=== PATIENT | female | born 1990 | race Caucasian/White ===

== ENCOUNTER → 2017-08-30 | Outpatient (CLI) | payer OTHER ==
[~2017-08-30] MED LIST: ACHD5005 PO; CETI10TA20 PO; DICY20TA10 PO; FLUT9.9S NS; HYDR1TAB3 PO; LACT1CAP62 PO; LISD40CA3 PO; METR500T; NORG1TAB14 PO; PHEN37.582
--- NOTE | 2017-08-30 08:45 | Diagnostic Imaging Report ---
PROCEDURE: US Gallbladder. TECHNIQUE: Multiple real-time grayscale images were obtained over the right upper quadrant in various projections. INDICATION: Right upper quadrant pain. COMPARISON: None. FINDINGS: The liver appears unremarkable. There are multiple stones in the gallbladder, one of which appears to be lodged within the gallbladder neck. There is no wall thickening or pericholecystic fluid. No sonographic Oliva sign. The common bile duct is not well demonstrated. No gross biliary dilatation is suspected. The pancreas is not well seen. The right kidney measures 9.2 cm in length and appears unremarkable. There is no ascites. IMPRESSION: 1. Cholelithiasis. 2. No additional significant abnormality is demonstrated. The pancreas and common bile duct, however, are not well visualized. Dictated by: Dictated on workstation # [id number]
== END ==
LOC: RAD 07:45
PROVIDERS: ATTEND Family Medicine
DX: K80.20 Calculus of gallbladder without cholecystitis without obstruction (principal)
CPT/HCPCS: 76705

== ENCOUNTER 2017-08-31 06:33 | Outpatient (CLI) | payer OTHER ==
[~2017-08-31] VITALS: Ht 162.6 cm; Wt 117.9 kg
[~2017-08-31 06:33] MED LIST changes: -ACHD5005 PO; -CETI10TA20 PO; -DICY20TA10 PO; -FLUT9.9S NS; -LACT1CAP62 PO; -LISD40CA3 PO; -NORG1TAB14 PO
[2017-08-31] MEDS ORDERED: FLUT9.9S NS (13:00)
[2017-08-31] MEDS ORDERED: LISD40CA3 PO (13:00)
[2017-08-31] MEDS ORDERED: CETI10TA20 PO (13:00)
[2017-08-31] MEDS ORDERED: LACT1CAP62 PO (13:00)
[2017-08-31] MEDS ORDERED: DICY20TA10 PO (13:00)
[2017-08-31] MEDS ORDERED: NORG1TAB14 PO (13:00)
[2017-09-01] MEDS ORDERED: ACHD5005 PO (11:51)
== END 2017-08-31 13:07 ==
LOC: PREOP 06:33
PROVIDERS: ATTEND Surgery
DX: Z01.818 Encounter for other preprocedural examination (principal); K80.20 Calculus of gallbladder without cholecystitis without obstruction

== ENCOUNTER 2017-09-01 08:35 | Day surgery (SDC) | payer OTHER ==
[~2017-09-01] VITALS: Ht 162.6 cm; Wt 117.9 kg
[~2017-09-01 08:35] MED LIST changes: +CETI10TA20 PO; +DICY20TA10 PO; +FLUT9.9S NS; +LACT1CAP62 PO; +LISD40CA3 PO; +NORG1TAB14 PO
--- OUTSIDE RECORDS SUMMARY | 2017-09-01 08:39 | XMS REPORT ---
Author Author RAMYA CARDOSO Organization [employer] Address Unknown Phone Unavailable Care Team Providers Care Portal Developer Name Role Phone RAMYA CARDOSO CP Unavailable Allergies No Known Allergies Problems Problem Type Condition Code Onset Dates Condition Status Problem Abdominal pain, right upper quadrant 789.01 Active Problem Dysfunction of Eustachian tube 381.81 Active Problem Acute serous otitis media 381.01 Active Problem Dysthymic disorder 300.4 Active Problem Unspecified otalgia 388.70 Active Problem Encounter for dental examination and cleaning without abnormal findings Z01.20 Active Problem Screening for diabetes mellitus V77.1 Active Problem Allergic rhinitis, cause unspecified 477.9 Active Problem Dizziness and giddiness 780.4 Active Problem Obesity, unspecified 278.00 Active Assessment Encounter for immunization Z23 Active Problem Need for prophylactic vaccination and inoculation, Influenza V04.81 Active Problem Acute sinusitis, unspecified 461.9 Active Problem Unspecified viral infection, in conditions classified elsewhere and of unspecified site 079.99 Active Problem STATE HEP A (ADULT) DX V05.3 Active Problem General counseling for prescription of oral contraceptives V25.01 Active Problem Dysuria 788.1 Active Problem Rash and other nonspecific skin eruption 782.1 Active Medications No Known Medications Procedures Procedure Coding System Code Date SINGLE IMMUNIZATION ADMIN CPT-4 62953 Mar 30, 2016 FLUARIX QUAD P-FREE 3 AND UP .50 2015 CPT-4 26497 Mar 30, 2016 Results No Known Results Immunizations Vaccine Administration Date FLUARIX QUAD P-FREE 3 AND UP .50 2015Mar 30, 2016 Summary Purpose [employer]Clinical[employer] Submission
--- OUTSIDE RECORDS SUMMARY | 2017-09-01 08:39 | XMS REPORT ---
Author Author RAMYA CARDOSO Organization [employer] Address Unknown Phone Unavailable Care Team Providers Care Chronometer Repairer Name Role Phone RAMYA CARDOSO CP Unavailable Allergies No Known Allergies Problems Problem Type Condition Code Onset Dates Condition Status Problem Rash and other nonspecific skin eruption 782.1 Active Problem Acute serous otitis media 381.01 Active Problem Abdominal pain, right upper quadrant 789.01 Active Problem Unspecified otalgia 388.70 Active Problem Dizziness and giddiness 780.4 Active Problem Dysthymic disorder 300.4 Active Problem Allergic rhinitis, cause unspecified 477.9 Active Problem Dysfunction of Eustachian tube 381.81 Active Problem Obesity, unspecified 278.00 Active Problem Screening for diabetes mellitus V77.1 Active Assessment Back pain, unspecified back pain laterality, unspecified location M54.9 Active Assessment Back pain 724.5 Active Problem Dysuria 788.1 Active Problem Acute sinusitis, unspecified 461.9 Active Problem Need for prophylactic vaccination and inoculation, Influenza V04.81 Active Problem Unspecified viral infection, in conditions classified elsewhere and of unspecified site 079.99 Active Problem STATE HEP A (ADULT) DX V05.3 Active Problem General counseling for prescription of oral contraceptives V25.01 Active Medications Medication Code System Code Instructions Start Date End Date Status Dosage Naproxen [facility] [address]-96 500 MG Orally every 12 hrs as needed for pain, take with food Jun 11, 2014 take 1 tablet Results No Known Results Summary Purpose [employer] Submission
--- OUTSIDE RECORDS SUMMARY | 2017-09-01 08:39 | XMS REPORT ---
Author Author RAMYA CARDOSO [facility] e[employer] Address Unknown Phone Unavailable Care Team Providers Care Candle Extrusion Machine Operator Name Role Phone RAMYA CARDOSO Unavailable Allergies, Adverse Reactions, Alerts Substance Reaction Event Type N.K.D.A. Info Not Available Non Drug Allergy Problems Problem Type Condition ICD-9 Code Onset Dates Condition Status Problem Rash [...] Screening for diabetes mellitus V77.1 Active Assessment Right leg numbness 782.0 Active Assessment Back pain 724.5 Active Problem [...] Instructions Start Date End Date Status Dosage Cyclobenzaprine HCl [facility] [address]-13 10 MG Orally Once a day prn Feb 10, 2015 Mar 12, 2015 1/2 tablet Naproxen [facility] [address]-35 500 mg Jun 11, 2014 take 1 tablet by Oral route 2 times per day with food PRN pain Zofran ODT [facility] [address]-84 8 mg May 26, 2014 1 tablet by Oral route every 8 hours PRN nausea or vomiting PredniSONE [facility] [address]-69 20 MG Orally Twice a day Feb 10, 2015 Feb 15, 2015 1 tablet with food or milk Tramadol HCl [facility] [address]-39 50 MG Orally every 6 hrs Feb 09, 2015 1-2 Procedures Procedure Coding System Code Date Office Visit, Est Pt., Level 3 CPT-4 57543 Feb 10, 2015 X-RAY EXAM OF LOWER SPINE CPT-4 30463 Feb 10, 2015 Vital Signs Date/Time: Feb 10, 2015 Temperature 97.0 F Weight 241 lbs Height 64 in BMI 41.36 Index Blood Pressure Diastolic 70 mmHg Blood Pressure Systolic 124 mmHg Results No Known Results Summary Purpose [employer]ClinicalWorks Submission
--- OUTSIDE RECORDS SUMMARY | 2017-09-01 08:39 | XMS REPORT ---
Author Author VEE POTTS [facility] e[employer] Address Unknown Phone Unavailable Care Team Providers Care Systems Project Manager Name Role Phone VEE POTTS CP Unavailable Allergies No Known Allergies Problems [...] Active Problem Obesity, unspecified 278.00 Active Assessment Dental examination Z01.20 Active Problem Need for prophylactic vaccination and [...] Medications Procedures Procedure Coding System Code Date [employer] Employee/Board adjustment CPT-4 [facility] Mar 31, 2016 Billing Notes on claim CPT-4 EC109 Mar 31, 2016 RESIN COMPOS - 1 SURFACE POSTERIOR CPT-4 D2391 Mar 31, 2016 Results No Known Results Summary Purpose [employer]ClinicalWorks Submission
--- OUTSIDE RECORDS SUMMARY | 2017-09-01 08:39 | XMS REPORT ---
Author Author RAMYA CARDOSO Organization [employer] Address Unknown Phone Unavailable Care Team Providers Care Supply Chain Logistics Manager Name Role Phone RAMYA CARDOSO CP Unavailable [...] Screening for diabetes mellitus V77.1 Active Problem Dysuria 788.1 Active Problem Acute [...] Instructions Start Date End Date Status Dosage Flonase [facility] [address]-31 50 MCG/ACT Nasally Once a day 1 spray in each nostril Results No Known Results Summary Purpose [employer]ClinicalWorks Submission
--- OUTSIDE RECORDS SUMMARY | 2017-09-01 08:39 | XMS REPORT ---
Author Author SARAH KELLY [facility] e[employer] Address Unknown Phone Unavailable Care Team Providers Care Dairy Farm Manager Name Role Phone SARAH KLELY CP Unavailable Allergies, Adverse Reactions, Alerts Substance Reaction Event Type N.K.D.A. Info Not Available Non Drug Allergy Problems Problem Type Condition Code Onset Dates [...] Screening for diabetes mellitus V77.1 Active Assessment Lumbar strain S39.012A Active Assessment Dorsalgia, unspecified M54.9 Active Problem Dysuria 788.1 Active Problem Acute [...] Start Date End Date Status Dosage Flonase [facility] [address]-61 50 MCG/ACT Nasally Once a day 1 spray in each nostril Procedures Procedure Coding System Code Date THER/PROPH/DIAG INJ, SC/IM CPT-4 59100 May 01, 2015 TORADOL (IM) 60 MG/2ML (UP TO 15 MG) CPT-4 J1885 May 01, 2015 DEPO MEDROL 40 MG/ML CPT-4 J1030 May 01, 2015 Office Visit, Est Pt., Level 3 CPT-4 13251 May 01, 2015 Vital Signs Date/Time: May 01, 2015 Temperature 98.7 F Weight 240 lbs Height 64 in BMI 41.19 Index Blood Pressure Diastolic 72 mmHg Blood Pressure Systolic 130 mmHg Cardiac Monitoring Heart Rate 70 bpm Results No Known Results Summary Purpose [employer]Works Submission
--- OUTSIDE RECORDS SUMMARY | 2017-09-01 08:39 | XMS REPORT ---
Author WANDA Morales [facility] [employer] Address Unknown Phone Unavailable Care Team Providers Care Hair Preparer Name Role Phone WANDA WHITE CP Unavailable Allergies, Adverse Reactions, Alerts Substance [...] diabetes mellitus V77.1 Active Assessment Lumbar strain 847.2 Active Problem Dysuria 788.1 Active Problem Acute [...] Instructions Start Date End Date Status Dosage Ativan [facility] [address]-10 0.5 MG Orally Once a day October 20, 2014 1 tablet as needed Bactroban [facility] [address]-60 2 % Jul 22, 2014 1 ros by Topical route 2 times per day for 14 day(s) Zofran ODT [facility] [address]-10 8 mg May 26, 2014 1 tablet by Oral route every 8 hours PRN nausea or vomiting Ambien [facility] [address]-68 5 MG Orally Once a day PRN October 10, 2014 1 tablet at bedtime Claritin [facility] [address]-22 10 mg August 20, 2013 1 Tablet by Oral route 1 time per day MiraLax [facility] [address]-99 17 gram/dose August 28, 2014 take 8.5 g mixed with 8 oz. water or juice by Oral route 1 time per day Naproxen [facility] [address]-30 500 mg Jun 11, 2014 take 1 tablet by Oral route 2 times per day with food PRN pain Lexapro [facility] [address]-41 10 mg Mar 18, 2014 1 tablet by Oral route 1 time per day Tramadol HCl [facility] [address]-96 50 MG Orally every 6 hrs Feb 09, 2015 1-2 Procedures Procedure Coding System Code Date Office Visit, Est Pt., Level 2 CPT-4 11604 Feb 09, 2015 Vital Signs Date/Time: Feb 09, 2015 Temperature 96.9 F Weight 241 lbs Height 64 in BMI 41.36 Index Blood Pressure Diastolic 72 mmHg Blood Pressure Systolic 106 mmHg Cardiac Monitoring Heart Rate 76 bpm Results No Known Results Summary Purpose eClinicalWorks Submission
--- OUTSIDE RECORDS SUMMARY | 2017-09-01 08:39 | XMS REPORT ---
Author Author WANDA WHITE [facility] eClinicalWorks Address Unknown Phone Unavailable Care Team Providers Care Abrasive Sawyer Name Role Phone WANDA WHITE CP Unavailable Allergies No Known Allergies Problems [...] Instructions Start Date End Date Status Dosage Tramadol HCl [facility] [address]-54 50 MG Orally every 6 hrs Feb 09, 2015 1-2 Results No Known Results Summary Purpose eClinicalWorks Submission
--- OUTSIDE RECORDS SUMMARY | 2017-09-01 08:40 | XMS REPORT ---
Author Author RAMYA CARDOSO Organization [employer] Address Unknown Phone Unavailable Care Team Providers Care Field Assessor Name Role Phone RAMYA CARDOSO CP Unavailable [...] Screening for diabetes mellitus V77.1 Active Assessment Encounter for immunization Z23 Active Problem Dysuria 788.1 Active Problem Acute sinusitis, unspecified 461.9 Active Problem Need for prophylactic vaccination and inoculation, Influenza V04.81 Active Problem Unspecified viral infection, in conditions classified elsewhere and of unspecified site 079.99 Active Problem STATE HEP A (ADULT) DX V05.3 Active Problem General counseling for prescription of oral contraceptives V25.01 Active Medications No Known Medications Procedures Procedure Coding System Code Date SINGLE IMMUNIZATION ADMIN CPT-4 09022 Mar 24, 2015 TDAP (BOOSTRIX) CPT-4 51105 Mar 24, 2015 Results No Known Results Immunizations Vaccine Administration Date TDAP (BOOSTRIX) Mar 24, 2015 Summary Purpose eClinicalWorks Submission
--- OUTSIDE RECORDS SUMMARY | 2017-09-01 08:40 | XMS REPORT ---
Author Author RAMYA CARDOSO Organization [employer] Address Unknown Phone Unavailable Care Team Providers Care Grievance And Appeals Coordinator Name Role Phone RAMYA CARDOOS CP Unavailable Allergies No Known Allergies Problems Problem Type Condition ICD-9 Code Onset [...] contraceptives V25.01 Active Medications No Known Medications Results No Known Results Summary Purpose eClinicalWorks Submission
[2017-09-01] MEDS ORDERED: ceFAZolin 2 GM/50 ML PRE-MIX IVPB IV ONE (09:00)
[2017-09-01] MEDS ORDERED: metroNIDAZOLE 500 MG/100 ML IVPB (PRE-MIX) IV ONE (09:00)
[2017-09-01] MEDS ORDERED: ONDANSETRON 4 MG/2 ML (SDV) Z0FRAN ONE ×2 (09:19→10:43)
[2017-09-01] MEDS ORDERED: SCOPOLAMINE 1.5 MG (TRANSDERM-SCOP) PATCH ONE (09:19)
[2017-09-01] MEDS ORDERED: FAMOTIDINE 20MG/2ML IV (PEPCID) ONE (09:19)
--- NOTE | 2017-09-01 09:21 | Progress Note-Pre Operative ---
Pre-Operative Progress Note H&P Reviewed The H&P was reviewed, patient examined and no changes noted. Date Seen by Provider: Sep 01, 2017 Time Seen by Provider: 09:10 Date H&P Reviewed: Sep 01, 2017 Time H&P Reviewed: 09:21 Pre-Operative Diagnosis: Gallstones CATARINA NEVAREZ MD Sep 01, 2017 9:21 am
[2017-09-01 09:39] LABS: BASOPHILS % (AUTO) 0 % (0-10); EOSINOPHILS # (AUTO) 0.1 10^3/uL (0.0-0.3); EOSINOPHILS % (AUTO) 2 % (0-10); HEMATOCRIT 39 % (35-52); HEMOGLOBIN 13.4 G/DL (11.5-16.0); LYMPHOCYTES # (AUTO) 1.7 X 10^3 (1.0-4.0); LYMPHOCYTES % (AUTO) 23 % (12-44); MEAN CORPUSCULAR HEMOGLOBIN 29 PG (25-34); MEAN CORPUSCULAR HGB CONC 34 G/DL (32-36); MEAN CORPUSCULAR VOLUME 85 FL (80-99); MEAN PLATELET VOLUME 9.3 FL (7.4-10.4); MONOCYTES # (AUTO) 0.3 X 10^3 (0.0-1.0); MONOCYTES % (AUTO) 4 % (0-12); NEUTROPHILS # (AUTO) 5.1 X 10^3 (1.8-7.8); NEUTROPHILS % (AUTO) 71 % (42-75); PLATELET COUNT 319 10^3/uL (130-400); RED BLOOD COUNT 4.58 10^6/uL (4.35-5.85); RED CELL DISTRIBUTION WIDTH 13.3 % (10.0-14.5); WHITE BLOOD COUNT 7.2 10^3/uL (4.3-11.0)
[2017-09-01] MEDS ORDERED: SCOPOLAMINE 1.5 MG (TRANSDERM-SCOP) PATCH TOP ONE (09:45)
[2017-09-01] MEDS ORDERED: FAMOTIDINE 20MG/2ML IV (PEPCID) IV ONE (09:45)
[2017-09-01] MEDS ORDERED: ONDANSETRON 4 MG/2 ML (SDV) Z0FRAN IV ONE (09:45)
[2017-09-01] MEDS ORDERED: ceFAZolin 2 GM IV Premixed 50 ML IV ONE (10:00)
[2017-09-01 10:01] VITALS: BP 130/87
[2017-09-01] MEDS: LACTATED RINGERS 1,000 ML IV PRN ×3 (10:09→13:30)
[2017-09-01] MEDS ORDERED: MIDAZOLAM 2 MG/2 ML (VERSED) VIAL ONE ×2 (10:26→10:44)
[2017-09-01] MEDS ORDERED: BUP/EPI 0.5% 1:200,000 (SENSORCAINE) 30 ML VIAL ONE (10:29)
[2017-09-01] MEDS ORDERED: MIDAZOLAM 2 MG/2 ML (VERSED) VIAL IV ONE (10:30)
[2017-09-01] MEDS ORDERED: LIDOCAINE PF 2% 5 ML (XYLOCAINE) VIAL ONE (10:43)
[2017-09-01] MEDS ORDERED: ROCURONIUM 10 MG/ML 5 ML SYRINGE IV ONE (10:43)
[2017-09-01] MEDS ORDERED: proPOfol 200 MG/20 ML (DIPRIVAN) VIAL IV ONE (10:43)
[2017-09-01] MEDS ORDERED: DESFLURANE (SUPRANE) 15 ML INHAL SOLN ONE ×5 (10:44→11:39)
[2017-09-01] MEDS ORDERED: fentaNYL INJECTION 100 MCG/2 ML AMP ONE ×3 (10:44→11:59)
[2017-09-01] MEDS ORDERED: DEXAMETHASONE 10 MG/ML (DECADRON) 1 ML VIAL ONE (10:44)
[2017-09-01] MEDS ORDERED: NEOSTIGMINE 1 MG/ML 5 ML SYRINGE ONE (11:40)
[2017-09-01] MEDS ORDERED: morphine INJ 10 MG/ML 1ML (SYR OR VIAL) ONE (11:40)
[2017-09-01] MEDS ORDERED: GLYCOPYRROLATE 0.2 MG/ML (ROBINUL) 2 ML VIAL ONE (11:40)
--- NOTE | 2017-09-01 11:49 | Operative Report ---
Operative Report Date of Procedure/Surgery Sep 01, 2017 Surgeon (s) CATARINA NEVAREZ MD Elementary Art Teacher (s): N/A Post-Operative Diagnosis Same Procedure Performed Robotic-assisted cholecystectomy Description of Procedure Anesthesia Type: General Estimated blood loss (mL): 50 Specimen(s) collected/removed Gallbladder Description of the Procedure Indication for the procedure: This lady presented with symptomatic gallstones with a large stone impacted at the neck of the gallbladder. She was offered prompt cholecystectomy using minimally invasive technique with the robotic assistance. Informed consent was obtained after reviewing the operative details and complications of wound infection, bile leak and cardiorespiratory dysfunction. Description of the procedure: She was placed supine on the operative table and general anesthesia induced using an endotracheal tube. 2 g of Ancef and 500 mg of Flagyl were administered intravenously as prophylaxis against wound infection. Sequential compression devices were placed around her legs, to minimize the risk of venous thrombosis. Abdomen was prepared and draped in the usual sterile manner. Pneumoperitoneum was established using a Veress needle introduced over the supra-umbilical region. Intra-abdominal pressure was maintained at 17 mmHg. A 12 mm trocar was placed and anatomy visualized using a 30, high-definition laparoscope, associated da Isabella system. Under direct view, I placed an 8 mm trocar over each side of the abdomen, followed by a 5 mm trocar over the left subcostal region. The robotic system was then docked in place after the patient was turned into reverse Trendelenburg position. Gallbladder was rather elongated with a stone impacted at the neck of the gallbladder. The fundus was retracted cephalad and the infundibulum grasped with Cadiere forceps. Peritoneum overlying Calot's triangle was incised using hook cautery, delineating the cystic duct and artery. Both were divided between locking clips. Cholecystectomy was then completed using the hook cautery. Subhepatic space was irrigated with saline and the gallbladder placed in an Endo Catch bag, being removed via the supra-umbilical trocar site. The fascia over this incision was closed using #1 Vicryl, using the Kwasi Terry device, under direct laparoscopic view. Incisions were closed using 4-0 Vicryl, in a subcuticular fashion. 0.5 percent Marcaine with epinephrine was infiltrated along the incisions, both pre- preemptively and at the conclusion of the operation. She tolerated the procedure well, was extubated without and taken to the recovery room in a stable condition. Findings of the Procedure See op report Allergies and Home Medications Allergies Coded Allergies: bupropion (Verified Allergy, Intermediate, HEART PALPITATIONS, 08/31/17) Home Medications Cetirizine HCl 10 Mg Tablet, 10 MG PO DAILY, (Reported) Dicyclomine HCl 20 Mg Tablet, 20 MG PO QID, (Reported) Fluticasone Propionate 9.9 Ml [place].susp, 1 SPRAY NS DAILY PRN for CONGESTION, ( Reported) 1 SPRAY EACH NARE DAILY Lactobacillus Acidophilus 1 Each Capsule, 1 EACH PO DAILY, (Reported) Lisdexamfetamine Dimesylate 40 Mg Capsule, 40 MG PO DAILY, (Reported) Norgestimate-Ethinyl Estradiol 1 Each Tablet, 1 EACH PO DAILY, (Reported) Patient Home Medication List Home Medication List Reviewed: Yes CATARINA NEVAREZ MD Sep 01, 2017 11:49 am
[2017-09-01] MEDS ORDERED: ACHD5005 PO (11:51)
--- NOTE | 2017-09-01 11:51 | Discharge Inst-Simple/Standard ---
Discharge Inst-Standard Discharge Medications New, Converted or Re-Newed RX: RX on Chart Patient Instructions/Follow Up Plan of Care/Instructions/FU: Band-Aids off in 48 hours. Incentive spirometry. Follow-up in 3 weeks. Activity as Tolerated: Yes Discharge Diet: No Restrictions CATARINA NEVAREZ MD Sep 01, 2017 11:51 am
[2017-09-01] MEDS: fentaNYL INJECTION 100 MCG/2 ML AMP IVP PRN ×3 (12:05→12:26)
[2017-09-01] MEDS ORDERED: KETOROLAC 30 MG/ML VIAL IVP ONE (12:15)
[2017-09-01] MEDS ORDERED: MEPERIDINE (DEMEROL) INJ 50 MG/ML IVP PRN (12:15)
[2017-09-01] MEDS ORDERED: PROMETHAZINE INJ 25 MG/ML (PHENERGAN) AMP IVP PRN (12:15)
[2017-09-01] MEDS ORDERED: ONDANSETRON 4 MG/2 ML (SDV) Z0FRAN IVP PRN (12:15)
[2017-09-01 12:55] VITALS: BP 104/47
[2017-09-01] MEDS ORDERED: HYDROcodone/APAP 5 MG/325 MG (LORTAB) TAB ONE (13:04)
[2017-09-01 13:25] VITALS: BP 100/69
[2017-09-01 13:55] VITALS: BP 111/58
--- NOTE | 2017-09-01 14:05 | Anesthesia-General Post-Op ---
General Patient Condition Mental Status/LOC: Same as Preop Cardiovascular: Satisfactory Nausea/Vomiting: Absent Respiratory: Satisfactory Pain: Controlled Complications: Absent Post Op Complications Complications None Follow Up Care/Instructions Patient Instructions None needed. Anesthesia/Patient Condition Patient Condition Patient is doing well, no complaints, stable vital signs, no apparent adverse anesthesia problems. No complications reported per nursing. CATALINA KIM CRNA Sep 01, 2017 14:05
[2017-09-01 15:00] VITALS: BP 115/62
[2017-09-01] MEDS ORDERED: HYDROcodone/APAP 5 MG/325 MG (LORTAB) TAB PO ONE (15:00)
[2017-09-01 15:45] VITALS: BP 115/62
== END 2017-09-01 15:45 | disposition home or self-care (01) ==
LOC: SDC 08:35
PROVIDERS: ATTEND Surgery
DX: K80.64 Calculus of gallbladder and bile duct with chronic cholecystitis without obstruction (principal); F32.9 Major depressive disorder, single episode, unspecified; F41.9 Anxiety disorder, unspecified; F90.9 Attention-deficit hyperactivity disorder, unspecified type; F17.210 Nicotine dependence, cigarettes, uncomplicated; E66.01 Morbid (severe) obesity due to excess calories; Z68.41 Body mass index [BMI] 40.0-44.9, adult; Z79.899 Other long term (current) drug therapy
CPT/HCPCS: 36415; 84703; 85025; 87081